=== PATIENT | female | born 1950 | race Caucasian/White ===

== ENCOUNTER 2019-01-09 18:54 | Emergency (ER) | payer MEDICARE ==
[~2019-01-09] VITALS: Ht 160 cm; Wt 61.2 kg
--- NOTE | 2019-01-09 19:11 | NUR ---
PT IS IN ROOM #2A. DR DURHAM EVALUATED THE PT.
--- NOTE | 2019-01-09 19:25 | NUR ---
WALLPAPER INSPECTOR AND SHIPPER AT B/S FOR XRAY OF THE LEFT HIP X2 VIEWS .
--- NOTE | 2019-01-09 20:10 | NUR ---
WENT FOR CT XRAY TRANSORTED KELY MANE.
[2019-01-09] MEDS ORDERED: IBUPROFEN 600 MG TABLET PO ONE (20:15)
[2019-01-09] MEDS ORDERED: IBUPROFEN 600 MG TABLET ONE (20:30)
--- NOTE | 2019-01-09 20:33 | NUR ---
given motrin 600 mg /po tolerated with water .
--- NOTE | 2019-01-09 21:11 | NUR ---
PATIENT ABLE TO WALK IN THE HALLWAY USING WALKER ,TOLERATED . DR: HERMINIO EXPLAINED TO PATIENT AND PATIENTS WITH REGARDS TO CT RESULT AND FOLLOW PRIMARY MD VISIT AND MRI FOLLOW UP .REST AND ICE THE AFFECTED SITE WALKER FOR AMBULATION.PATIENT AND PATIENT VERBALIZED UNDERSTANDING WITH REGARDS TO FOLLOW TREATMENT.
--- NOTE | 2019-01-09 21:26 | NUR ---
Patient discharged to home in stable conditon. Written and verbal after care instructions given. Patient verbalizes understanding of instructions.PATIENT REFUSED TO GO HOME WITH WALKER PATIENT VERBALIZED SHE AND HER REFUSED TO TAKE THE WALKER HOME AND SHE HAS A CANE AT HOME AND SHE WILL USE HER CANE ,MD DURHAM MADE AWARE .PATIENT WENT HOME WAKING ESCORTED BY AND ADVISED TO USED THE GOOD LEG AND NOT TO BEAR WT ON THE BAD LEG , PATEINT WENT HOME WITH ALL BELONGINGS AND ADVISED TO CALL 911 IF EMERGENCY ARISES .
[2019-01-09 21:33] VITALS: BP 133/78
== END 2019-01-09 21:34 | disposition home or self-care (01) ==
LOC: ER 19:02
DX: S79.912A Unspecified injury of left hip, initial encounter (principal); D25.9 Leiomyoma of uterus, unspecified; X50.1XXA Overexertion from prolonged static or awkward postures, initial encounter; Y93.89 Activity, other specified; Y92.89 Other specified places as the place of occurrence of the external cause; Y99.8 Other external cause status
CPT/HCPCS: 72192; 73502; A4663